=== PATIENT | female | born 1975 | race Caucasian/White ===

== ENCOUNTER 2023-11-06 16:51 | Observation (INO) | payer OTHER, SELFPAY ==
[2023-11-06 17:11] VITALS: BP 132/75; BMI 29.8
== END 2023-11-06 18:16 | disposition home or self-care (01) ==
LOC: LDRP 16:51
PROVIDERS: ADMITTING PHYSICIAN Obstetrics & Gynecology; FAMILY PHYSICIAN Family Medicine
DX: O36.8130 Decreased fetal movements, third trimester, not applicable or unspecified (principal); Z3A.38 38 weeks gestation of pregnancy; J45.909 Unspecified asthma, uncomplicated; O99.343 Other mental disorders complicating pregnancy, third trimester; F41.9 Anxiety disorder, unspecified
CPT/HCPCS: 86850; 86900; 86901; G0378

== ENCOUNTER → 2023-11-07 13:31 | Outpatient (REF) | payer OTHER, SELFPAY | LOC: PNTC 13:31 | PROVIDERS: ATTENDING PHYSICIAN Obstetrics & Gynecology | DX: O09.529 Supervision of elderly multigravida, unspecified trimester (principal); O09.819 Supervision of pregnancy resulting from assisted reproductive technology, unspecified trimester | CPT/HCPCS: 59025; 76816 ==

== ENCOUNTER 2023-11-09 08:10 | Inpatient (IN) | payer OTHER, SELFPAY ==
[2023-11-09 08:22] VITALS: BP 124/84; BMI 29.8
[2023-11-09 09:48] LABS: % Basophils 0.6 % (0-2); % Eosinophils 1.4 % (0-6); % Immature Granulocytes 0.3 % (0-0.5); % Lymphocytes 15.7 % (20.5-51.1); % Monocytes 5.3 % (1.7-9.3); % Neutrophils 76.7 % (42.2-75.2); Absolute Basophils 0.1 10^3/uL (0-0.2); Absolute Eosinophils 0.1 10^3/uL (0-0.7); Absolute Lymphocytes 1.4 10^3/uL (1.2-3.4); Absolute Monocytes 0.5 10^3/uL (0.1-0.6); Absolute Neutrophils 6.6 10^3/uL (1.4-6.5); Hematocrit 34.1 % (37.0-47.0); Mean Corp Hgb Conc. 35.2 g/dL (33.0-37.0); Mean Corpuscular Hgb 29.6 pg (27.0-31.0); Mean Corpuscular Volume 84.2 fL (81.0-99.0); Mean Platelet Volume 11.5 fL (7.4-10.4); Nucleated Red Blood Cells % 0 %; Platelet Count 197 10^3/uL (130-400); Red Blood Cell Count 4.05 10^6/uL (4.20-5.40); Red Cell Dist. Width 12.9 % (11.5-14.5); White Blood Cell Count 8.7 10^3/uL (4.8-10.8)
[2023-11-09] MEDS: CYTOTEC 25 MICROGRAM VAG (11:14)
[2023-11-09] MEDS: CYTOTEC 50 MICROGRAM PO (15:12)
[2023-11-09] MEDS: PITOCIN 30 UNITS/NSS 500 ML IV (19:53)
[2023-11-10 04:00] LABS: Glucose - Point of Care 91 mg/dl (70-99)
[2023-11-10] MEDS: SUBLIMAZE 100 MCG EPIDURAL (04:07)
[2023-11-10] MEDS: FENTANYL/BUPIVACAINE 100 EPIDURAL (04:08)
[2023-11-10] MEDS: PRENATAL PLUS 1 TABLET PO (08:57)
[2023-11-10] MEDS: SENOKOT-S 1 TABLET PO (08:57)
[2023-11-10] MEDS: TYLENOL 650 MG PO ×2 (16:40→21:19)
[2023-11-10] MEDS: MOTRIN 600 MG PO (16:40)
[2023-11-11] MEDS: MOTRIN 600 MG PO ×2 (04:10→12:41)
[2023-11-11 04:57] LABS: Hematocrit 36.7 % (37.0-47.0); Hemoglobin 12.6 g/dL (12.0-16.0)
[2023-11-11] MEDS: PRENATAL PLUS 1 TABLET PO (08:54)
[2023-11-11] MEDS: SENOKOT-S 1 TABLET PO (08:54)
[2023-11-14 13:41] LABS: Syphilis/T. pallidum Ab Reflex Negative (Negative)
== END 2023-11-11 13:45 | disposition home or self-care (01) | DRG 807 ==
LOC: LDRP 08:10
PROVIDERS: ADMITTING PHYSICIAN Obstetrics & Gynecology
PROC: 3E0P7VZ Introduction of Hormone into Female Reproductive, Via Natural or Artificial Opening (ICD-10-PCS; 2023-11-09)
PROC: 3E0DXGC Introduction of Other Therapeutic Substance into Mouth and Pharynx, External Approach (ICD-10-PCS; 2023-11-09)
PROC: 10907ZC Drainage of Amniotic Fluid, Therapeutic from Products of Conception, Via Natural or Artificial Opening (ICD-10-PCS; 2023-11-10)
PROC: 10E0XZZ Delivery of Products of Conception, External Approach (ICD-10-PCS; 2023-11-10)
PROC: 0HQ9XZZ Repair Perineum Skin, External Approach (ICD-10-PCS; 2023-11-10)
DX: O24.420 Gestational diabetes mellitus in childbirth, diet controlled (principal); Z37.0 Single live birth; Z3A.39 39 weeks gestation of pregnancy; J45.909 Unspecified asthma, uncomplicated; O99.52 Diseases of the respiratory system complicating childbirth; M51.26 Other intervertebral disc displacement, lumbar region; O99.344 Other mental disorders complicating childbirth; F41.9 Anxiety disorder, unspecified; O70.0 First degree perineal laceration during delivery
CPT/HCPCS: 88307; 82962; 85014; 85018; 85025; 86780; 86850; 86900; 86901

== ENCOUNTER → 2024-01-24 06:28 | Day surgery (SDC) | payer OTHER, SELFPAY | LOC: GI 06:28 | PROVIDERS: ATTENDING PHYSICIAN Internal Medicine | DX: Z12.11 Encounter for screening for malignant neoplasm of colon (principal); D12.2 Benign neoplasm of ascending colon; K62.1 Rectal polyp | CPT/HCPCS: 45380; 88305 ==